=== PATIENT | female | born 1985 | race Caucasian/White ===

== ENCOUNTER 2020-02-02 05:47 | Day surgery (SDC) | payer OTHER ==
[~2020-02-02] VITALS: Ht 165.1 cm; Wt 104.7 kg
[~2020-02-02 05:47] MED LIST: BUSP10TA PO; WELLTAB40 PO
[2020-02-02 06:42] LABS: HEMATOCRIT 40.8 % (36.0-47.0); HEMOGLOBIN 13.6 g/dl (12.0-15.5); MEAN CORPUSCULAR HEMOGLOBIN 28.8 pg (27.0-33.0); MEAN CORPUSCULAR HGB CONC 33.3 g/dl (32.0-36.5); MEAN CORPUSCULAR VOLUME 86.4 fl (80.0-96.0); PLATELET COUNT, AUTOMATED 358 10^3/uL (150-450); RED BLOOD COUNT 4.72 10^6/uL (4.00-5.40); WHITE BLOOD COUNT 9.8 10^3/uL (4.0-10.0)
[2020-02-02] MEDS ORDERED: LR 1,000 ML IV ONE (07:00)
[2020-02-02] MEDS ORDERED: LIDOCAINE 2% 100MG/5ML SDV (FOR ANES.) As Ordered ONE (07:10)
[2020-02-02] MEDS ORDERED: propofoL 200 MG/20 ML VIAL As Ordered ONE (07:10)
[2020-02-02] MEDS ORDERED: ROCURONIUM BROMIDE 50 MG/5 ML VIAL As Ordered ONE (07:11)
[2020-02-02] MEDS ORDERED: MIDAZOLAM INJ 2MG/2ML VIAL (J2250 PER 1MG) As Ordered ONE (07:11)
[2020-02-02] MEDS ORDERED: fentaNYL 100 MCG/2 ML INJECTION (J3010) As Ordered ONE ×3 (07:11→08:22)
[2020-02-02] MEDS ORDERED: ONDANSETRON 4MG/2ML VIAL As Ordered ONE (07:12)
[2020-02-02] MEDS ORDERED: dexameTHASONE 4 MG/ML 1ML VIAL (J1100 PER 1MG) As Ordered ONE (07:12)
[2020-02-02] MEDS ORDERED: ACETAMINOPHEN 650 MG SUPP As Ordered ONE (07:14)
[2020-02-02] MEDS ORDERED: BUPIVACAINE HCL 0.5% 10ML VIAL As Ordered ONE (07:14)
[2020-02-02 07:16] LABS: BLOOD UREA NITROGEN 11 MG/DL (7-18); CALCIUM LEVEL 8.5 MG/DL (8.5-10.1); CARBON DIOXIDE LEVEL 26 MEQ/L (21-32); CHLORIDE LEVEL 107 MEQ/L (98-107); GLOMERULAR FILTRATION RATE > 60.0 (>60); GLUCOSE, FASTING 95 MG/DL (70-100); HCG, SERUM QUANTITATIVE < 1.0 MIU/ML; POTASSIUM SERUM 4.2 MEQ/L (3.5-5.1); SODIUM LEVEL 137 MEQ/L (136-145)
[2020-02-02] MEDS ORDERED: ALBUTEROL 6.7GM INHALER **FOR ANES. CART/OMNICELL ONLY As Ordered ONE (07:48)
[2020-02-02] MEDS ORDERED: METOCLOPRAMIDE INJ 10MG/2ML VIAL (J2765 PER 1) As Ordered ONE (08:36)
[2020-02-02] MEDS ORDERED: fentaNYL 100 MCG/2 ML INJECTION (J3010) IV PRN (09:00)
[2020-02-02] MEDS ORDERED: HYDROMORPHONE HCL 0.5 MG/ 0.5 ML SYRINGE (J1170 PER 1) IV PRN (09:00)
[2020-02-02] MEDS ORDERED: KETOROLAC 30 MG/ML 1ML VIAL IV PRN (09:00)
[2020-02-02] MEDS ORDERED: LR 1,000 ML IV SCH (09:00)
[2020-02-02] MEDS ORDERED: ONDANSETRON 4MG/2ML VIAL IV PRN (09:00)
[2020-02-02] MEDS ORDERED: oxyCODONE 5MG TAB PO PRN (09:00)
[2020-02-02 09:42] VITALS: BP 130/71
[2020-02-02] MEDS ORDERED: KETOROLAC 60MG 2ML VIAL As Ordered ONE (11:48)
[2020-02-02] MEDS ORDERED: SUGAMMADEX SODIUM 500 MG/5 ML VIAL (BRIDION) As Ordered ONE (11:48)
== END 2020-02-02 10:15 | disposition home or self-care (01) ==
LOC: M SDC 05:47
PROVIDERS: ATTEND Obstetrics & Gynecology
DX: Z30.2 Encounter for sterilization (principal); K21.9 Gastro-esophageal reflux disease without esophagitis; F41.9 Anxiety disorder, unspecified; F32.9 Major depressive disorder, single episode, unspecified; Z79.899 Other long term (current) drug therapy
CPT/HCPCS: 36415; 58661; 80048; 84702; 85027; 88302; J1100; J1885; J2250; J2405; J2765; J3010

== ENCOUNTER 2022-01-11 11:35 | Emergency (ER) | payer OTHER ==
[~2022-01-11] VITALS: Ht 165.1 cm; Wt 104.5 kg
[2022-01-11] MEDS ORDERED: VENL150C43 (11:46)
[2022-01-11 13:11] LABS: BASO # 0.1 10^3/uL (0.0-0.2); BASO % 0.3 % (0.0-1.0); HEMATOCRIT 41.1 % (36.0-47.0); HEMOGLOBIN 14.3 g/dl (12.0-15.5); LYMPH # 2.8 10^3/uL (1.5-5.0); LYMPH % 17.6 % (24.0-44.0); MEAN CORPUSCULAR HEMOGLOBIN 28.7 pg (27.0-33.0); MEAN CORPUSCULAR HGB CONC 34.8 g/dl (32.0-36.5); MEAN CORPUSCULAR VOLUME 82.4 fl (80.0-96.0); MONO # 1.2 10^3/uL (0.0-0.8); MONO % 7.4 % (2.0-8.0); NEUTROPHILS # 11.6 10^3/uL (1.5-8.5); NEUTROPHILS % 74.2 % (36.0-66.0); PLATELET COUNT, AUTOMATED 482 10^3/uL (150-450); RED BLOOD COUNT 4.99 10^6/uL (4.00-5.40); WHITE BLOOD COUNT 15.7 10^3/uL (4.0-10.0)
[2022-01-11] MEDS ORDERED: MORPHINE 4 MG/ML 1ML VIAL/SYRINGE IV ONE (13:30)
[2022-01-11] MEDS ORDERED: NS 1,000 ML IV ONE ×2 (13:30→15:25)
[2022-01-11] MEDS ORDERED: ONDANSETRON 4MG/2ML VIAL IV ONE (13:30)
[2022-01-11 13:37] LABS: ALBUMIN 3.9 GM/DL (3.2-5.2); BILIRUBIN,DIRECT 0.3 MG/DL (0.0-0.2); BILIRUBIN,TOTAL 1.2 MG/DL (0.2-1.0); TOTAL PROTEIN 7.3 GM/DL (6.4-8.2)
[2022-01-11 14:46] LABS: CK-MB VALUE MASS 2.2 NG/ML (<3.6); CPK CREATINE PHOSPHOKINASE 128 U/L (26-192); MB/CK RELATIVE INDEX 1.72 (< OR =4)
[2022-01-11] MEDS ORDERED: GI COCKTAIL 50ML BTL(HYOSCYAMINE/MAALOX/LIDOCAINE VISCOUS)(1:3:1) PO ONE (15:35)
[2022-01-11] MEDS ORDERED: PANTOPRAZOLE 40MG VIAL IV ONE (15:35)
[2022-01-11] MEDS ORDERED: ISOVUE-370 76% 100ML VIAL As Ordered ONE (15:38)
[2022-01-11] MEDS ORDERED: OMEP40CA4 PO (17:29)
[2022-01-11] MEDS ORDERED: KETO10TAB PO (17:30)
[2022-01-11 17:32] VITALS: BP 161/92
== END 2022-01-11 17:34 | disposition home or self-care (01) ==
LOC: M ED 11:35
DX: K44.9 Diaphragmatic hernia without obstruction or gangrene (principal); R10.13 Epigastric pain; E86.0 Dehydration; R07.89 Other chest pain; K21.9 Gastro-esophageal reflux disease without esophagitis; K76.0 Fatty (change of) liver, not elsewhere classified; F17.200 Nicotine dependence, unspecified, uncomplicated; Z82.49 Family history of ischemic heart disease and other diseases of the circulatory system; Z79.899 Other long term (current) drug therapy
CPT/HCPCS: 74177; 76705; 80047; 80076; 82550; 82553; 83690; 84484; 85025; 93005; 96361; 96374; 96375; 99284; C9113; J2270; J2405; Q9967

== ENCOUNTER 2022-02-18 19:02 | Emergency (ER) | payer OTHER ==
[~2022-02-18] VITALS: Ht 165.1 cm; Wt 97.3 kg
[~2022-02-18 19:02] MED LIST changes: +KETO10TAB PO; +OMEP40CA4 PO; +VENL150C43
[2022-02-18] MEDS ORDERED: ONDA4TAB6 PO (19:09)
[2022-02-18 20:31] VITALS: BP 136/81
== END 2022-02-18 20:32 | disposition home or self-care (01) ==
LOC: M ED 19:02
DX: R10.13 Epigastric pain (principal); R55 Syncope and collapse; K44.9 Diaphragmatic hernia without obstruction or gangrene; Z79.899 Other long term (current) drug therapy

== ENCOUNTER 2022-02-18 22:02 | Emergency (ER) | payer OTHER ==
[~2022-02-18] VITALS: Ht 165.1 cm; Wt 97.3 kg
[~2022-02-18 22:02] MED LIST changes: +ONDA4TAB6 PO
[2022-02-18] MEDS ORDERED: PANTOPRAZOLE 40MG VIAL IV ONE (23:10)
[2022-02-18] MEDS ORDERED: ONDANSETRON 4MG 2ML VIAL IV ONE (23:10)
[2022-02-18] MEDS ORDERED: FAMOTIDINE 20MG/2ML VIAL IVP ONE (23:10)
[2022-02-18] MEDS ORDERED: KETOROLAC 30 MG/ML 1ML VIAL IV ONE (23:10)
[2022-02-18 23:22] LABS: BASO # 0.1 10^3/uL (0.0-0.2); BASO % 0.5 % (0.0-1.0); EOS # 0.1 10^3/uL (0.0-0.5); EOS % 0.4 % (0.0-3.0); HEMATOCRIT 43.9 % (36.0-47.0); HEMOGLOBIN 15.1 g/dl (12.0-15.5); LYMPH % 13.6 % (24.0-44.0); MEAN CORPUSCULAR HEMOGLOBIN 29.1 pg (27.0-33.0); MEAN CORPUSCULAR HGB CONC 34.4 g/dl (32.0-36.5); MEAN CORPUSCULAR VOLUME 84.6 fl (80.0-96.0); MONO # 1.4 10^3/uL (0.0-0.8); MONO % 6.5 % (2.0-8.0); NEUTROPHILS # 17.1 10^3/uL (1.5-8.5); NEUTROPHILS % 78.4 % (36.0-66.0); PLATELET COUNT, AUTOMATED 510 10^3/uL (150-450); RED BLOOD COUNT 5.19 10^6/uL (4.00-5.40); WHITE BLOOD COUNT 21.9 10^3/uL (4.0-10.0)
[2022-02-18] MEDS ORDERED: LORazepam 2 MG/ML VIAL IV STA (23:47)
[2022-02-18 23:57] LABS: ALBUMIN 3.9 GM/DL (3.2-5.2); BILIRUBIN,DIRECT 0.2 MG/DL (0.0-0.2); BILIRUBIN,TOTAL 0.7 MG/DL (0.2-1.0); CALCIUM LEVEL 9.6 MG/DL (8.5-10.1); CREATININE FOR GFR 1.18 MG/DL (0.55-1.30); GLOMERULAR FILTRATION RATE 55.5 (>60); POTASSIUM SERUM 3.7 MEQ/L (3.5-5.1); TOTAL PROTEIN 7.6 GM/DL (6.4-8.2)
[2022-02-19] MEDS ORDERED: ISOVUE-370 76% 100ML VIAL As Ordered ONE (00:09)
[2022-02-19] MEDS ORDERED: NS 2,920 ML in IV 1 EA IV ONE (00:15)
[2022-02-19 02:38] LABS: AMPHETAMINES LEVEL URINE NEGATIVE (NEGATIVE); BARBITURATES URINE NEGATIVE (NEGATIVE); BENZODIAZEPINES URINE NEGATIVE (NEGATIVE); CANNABINOIDS URINE POSITIVE (NEGATIVE); COCAINE METABOLITE URINE NEGATIVE (NEGATIVE); METHADONE URINE NEGATIVE (NEGATIVE); OPIATES URINE NEGATIVE (NEGATIVE); PHENCYCLIDINE URINE NEGATIVE (NEGATIVE)
[2022-02-19] MEDS ORDERED: HALOPERIDOL 5MG/ML VIAL (J1630 PER 1) IV ONE (02:55)
[2022-02-19 06:33] VITALS: BP 130/78
== END 2022-02-19 07:01 | disposition home or self-care (01) ==
LOC: M ED 22:02
DX: G43.A0 Cyclical vomiting, in migraine, not intractable (principal); R16.0 Hepatomegaly, not elsewhere classified; K76.0 Fatty (change of) liver, not elsewhere classified; J44.9 Chronic obstructive pulmonary disease, unspecified; F17.200 Nicotine dependence, unspecified, uncomplicated
CPT/HCPCS: 74177; 80048; 80076; 80307; 83605; 83690; 85025; 93005; 93041; 96361; 96374; 96375; 99284; 99285; C9113; J1630; J1885; J2060; J2405; Q9967

== ENCOUNTER 2022-07-24 12:48 | Day surgery (SDC) | payer OTHER ==
[~2022-07-24] VITALS: Ht 165.1 cm; Wt 91.8 kg
[~2022-07-24 12:48] MED LIST changes: +ERGO500029; +NS 1,000 ML IV ONE; +PANT40TA29; +VENL75CA47 PO
[2022-07-24] MEDS ORDERED: propofoL 500 MG/50 ML VIAL As Ordered ONE (14:42)
[2022-07-24] MEDS ORDERED: LIDOCAINE 2% 100MG/5ML SDV (FOR ANES.) As Ordered ONE (14:42)
[2022-07-24] MEDS ORDERED: fentaNYL 100 MCG/2 ML INJECTION As Ordered ONE (14:42)
[2022-07-24 15:20] VITALS: BP 138/77
== END 2022-07-24 15:30 | disposition home or self-care (01) ==
LOC: M OPP 12:48
PROVIDERS: ATTEND Internal Medicine Gastroenterology
DX: K44.9 Diaphragmatic hernia without obstruction or gangrene (principal); R12 Heartburn; F41.9 Anxiety disorder, unspecified; F32.A Depression, unspecified; F17.210 Nicotine dependence, cigarettes, uncomplicated; Z88.5 Allergy status to narcotic agent; Z88.6 Allergy status to analgesic agent; Z79.899 Other long term (current) drug therapy
CPT/HCPCS: 43239; 43249; 88305; J3010

== ENCOUNTER 2023-02-18 07:10 | Emergency (ER) | payer OTHER ==
[~2023-02-18] VITALS: Ht 165.1 cm; Wt 90.9 kg
[~2023-02-18 07:10] MED LIST changes: -NS 1,000 ML IV ONE
[2023-02-18] MEDS ORDERED: PANT40TA29 (07:23)
[2023-02-18] MEDS ORDERED: PROMETHAZINE (07:23)
[2023-02-18] MEDS ORDERED: FAMO40TA3 (07:23)
[2023-02-18] MEDS ORDERED: PROM25TA12 (07:23)
[2023-02-18] MEDS ORDERED: SUCR1TAB56 (07:23)
[2023-02-18] MEDS ORDERED: MAALOX 30 ML SUSP *UDC PO ONE (07:50)
[2023-02-18] MEDS ORDERED: HYOSCYAMINE SULFATE 0.125 MG SUBL TABLET PO ONE (07:50)
[2023-02-18] MEDS ORDERED: METOCLOPRAMIDE INJ 10MG/2ML VIAL IV ONE (07:50)
[2023-02-18 08:22] LABS: BASO # 0.1 10^3/uL (0.0-0.2); BASO % 0.4 % (0.0-1.0); EOS % 0.1 % (0.0-3.0); HEMOGLOBIN 13.3 g/dl (12.0-15.5); LYMPH # 2.1 10^3/uL (1.5-5.0); LYMPH % 12.9 % (24.0-44.0); MEAN CORPUSCULAR HEMOGLOBIN 29.3 pg (27.0-33.0); MEAN CORPUSCULAR HGB CONC 34.1 g/dl (32.0-36.5); MEAN CORPUSCULAR VOLUME 85.9 fl (80.0-96.0); MONO # 0.9 10^3/uL (0.0-0.8); MONO % 5.5 % (2.0-8.0); NEUTROPHILS # 12.8 10^3/uL (1.5-8.5); NEUTROPHILS % 80.7 % (36.0-66.0); PLATELET COUNT, AUTOMATED 504 10^3/uL (150-450); RED BLOOD COUNT 4.54 10^6/uL (4.00-5.40); WHITE BLOOD COUNT 15.9 10^3/uL (4.0-10.0)
[2023-02-18] MEDS ORDERED: SUCRALFATE SUSP 1GM/10ML UD PO ONE (08:40)
[2023-02-18] MEDS ORDERED: PROMETHAZINE 25MG/ML 1ML VIAL IV ONE (08:45)
[2023-02-18] MEDS ORDERED: NS 1,000 ML IV ONE (08:50)
[2023-02-18 08:54] LABS: LIPASE 32 U/L (12-53)
[2023-02-18 08:56] LABS: ALBUMIN 3.7 G/DL (3.2-5.2); ALKALINE PHOSPHATASE 66 U/L (46-116); ALT/SGPT 27 U/L (7.0-40); AST/SGOT 17 U/L (<34); BILIRUBIN,DIRECT 0.3 MG/DL (<0.4); BILIRUBIN,TOTAL 1.1 MG/DL (0.3-1.2); CK-MB VALUE MASS < 1.0 NG/ML (<3.6); CPK CREATINE PHOSPHOKINASE 99 U/L (34-145); MB/CK RELATIVE INDEX 1.01 (< OR =4); TOTAL PROTEIN 6.7 G/DL (5.7-8.2)
[2023-02-18] MEDS ORDERED: ONDANSETRON 4MG 2ML VIAL IV ONE (11:15)
[2023-02-18] MEDS ORDERED: SUCR1SS PO (12:54)
[2023-02-18 13:02] VITALS: BP 153/97; TEMP 98; O2SAT 98
== END 2023-02-18 13:34 | disposition home or self-care (01) ==
LOC: M ED 07:10
DX: R07.89 Other chest pain (principal); K21.9 Gastro-esophageal reflux disease without esophagitis; K44.9 Diaphragmatic hernia without obstruction or gangrene; F17.200 Nicotine dependence, unspecified, uncomplicated; Z79.899 Other long term (current) drug therapy
CPT/HCPCS: 71046; 80047; 80076; 82550; 82553; 83605; 83690; 84484; 84702; 85025; 87040; 93005; 96361; 96374; 96375; 99284; J2405; J2550; J2765

== ENCOUNTER 2023-02-19 08:08 | Emergency (ER) | payer OTHER ==
[~2023-02-19] VITALS: Ht 165.1 cm; Wt 88.9 kg
[2023-02-19 08:08] VITALS: BP 177/95; TEMP 96.8; O2SAT 100
[~2023-02-19 08:08] MED LIST changes: +FAMO40TA3; +PROM25TA12; +PROMETHAZINE; +SUCR1SS PO; +SUCR1TAB56
== END 2023-02-19 09:28 | disposition left against medical advice (07) ==
LOC: M ED 08:08
DX: Z53.21 Procedure and treatment not carried out due to patient leaving prior to being seen by health care provider (principal)